=== PATIENT | female | born 1965 | race Caucasian/White ===

== ENCOUNTER 2017-11-27 21:23 | Emergency (ER) | payer BC ==
[2017-11-27] MEDS ORDERED: EPINEPHrine 1 MG/ML SDV IM ONE (21:29)
[2017-11-27] MEDS ORDERED: diphenhydrAMINE 50 MG/ML SDV IM ONE (21:29)
[2017-11-27] MEDS ORDERED: methylPREDNISolone Sodium Succinate 125 MG/2 ML SDV IM ONE (21:30)
--- NOTE | 2017-11-27 21:34 | EDM.PDOC ---
ED HPI GENERAL MEDICAL PROBLEM - General Stated Complaint: REACTION Time Seen by Provider: 11/27/17 21:32 Source of Information: Reports: Patient, Family, RN Notes Reviewed History Limitations: Reports: No Limitations - History of Present Illness INITIAL COMMENTS - FREE TEXT/NARRATIVE: 51-year-old female presents to emergency department today complaint of allergic reaction mainly lip swelling and redness she states she's tolerating breathing okay and no throat closure she does admit to pain in her left leg which she's not sure about, she did have flu shot today at 2:00 had a burger and fries for dinner with 2 beers all of which she's had before in the past - Related Data Allergies Allergy/AdvReac Type Severity Reaction Status Date / Time triamcinolone [From Kenalog] Allergy Other Verified 11/27/17 21:34 Home Meds: Home Meds Multivitamin with Minerals [Multiple Vitamin] 1 tab PO DAILY 06/05/17 [History] Omeprazole Magnesium [Prilosec Otc] 20 mg PO DAILY 06/05/17 [History] SUMAtriptan [Imitrex] 25 mg PO ASDIRECTED PRN 06/05/17 [History] Social & Family History - Tobacco Use Smoking Status *Q: Current Every Day Smoker ED ROS GENERAL - Review of Systems Review Of Systems: See Below Constitutional: Reports: No Symptoms Respiratory: Reports: No Symptoms Cardiovascular: Reports: No Symptoms Skin: Reports: Pruritis, Rash, Erythema ED EXAM, GENERAL - Physical Exam Exam: See Below Exam Limited By: No Limitations General Appearance: Alert, Mild Distress Respiratory/Chest: No Respiratory Distress, Lungs Clear, Normal Breath Sounds, No Accessory Muscle Use Cardiovascular: Regular Rate, Rhythm, No Murmur Skin Exam: Warm, Erythema, Rash Course - Vital Signs Last Recorded V/S: Last Vital Signs Temp 96.3 F 11/27/17 21:40 Pulse 109 H 11/27/17 22:19 Resp 15 11/27/17 22:19 BP 116/79 11/27/17 22:19 Pulse Ox 100 11/27/17 22:19 - Orders/Labs/Meds Meds: Medications Discontinued Medications Generic Name Dose Route Start Last Admin Trade Name Freq PRN Reason Stop Dose Admin Diphenhydramine HCl 25 mg 11/27/17 21:29 11/27/17 21:36 Benadryl IM 11/27/17 21:30 25 mg ONETIME ONE Administration Epinephrine HCl 0.3 mg 11/27/17 21:29 11/27/17 21:36 Adrenalin IM 11/27/17 21:30 0.3 mg ONETIME ONE Administration Methylprednisolone Sodium Succinate 125 mg 11/27/17 21:30 11/27/17 21:36 Solu-Medrol IM 11/27/17 21:31 125 mg ONETIME ONE Administration Departure - Departure Time of Disposition: 23:17 Disposition: Home, Self-Care 01 Condition: Good Clinical Impression: Allergic reaction Qualifiers: Encounter type: initial encounter Qualified Code(s): T78.40XA - Allergy, unspecified, initial encounter - Discharge Information Referrals: PCP,None [Primary Care Provider] - Additional Instructions: Fill your prescription for your injectable epinephrine, use this if needed Please followup with your primary care provider in 3-5 days if not better, please call return to the emergency department with worsening of symptoms. - Assessment/Plan Plan: Assessment Acuity = acute Site and laterality = allergic reaction Etiology = probably to a venomous bite unknown etiology Manifestations = none Location of injury = Home Lab values = none Plan Good improvement with epinephrine, Benadryl and Solu-Medrol, prescription for injectable epinephrine provided follow-up with primary care in 3-5 days if not better This note was dictated using [employer] voice recognition software please call with any questions on syntax or grammar.
== END 2017-11-27 23:23 | disposition home or self-care (01) ==
LOC: JP.ED 21:23
DX: R22.0 Localized swelling, mass and lump, head (principal); T78.40XA Allergy, unspecified, initial encounter; F17.210 Nicotine dependence, cigarettes, uncomplicated; Z88.8 Allergy status to other drugs, medicaments and biological substances; Z79.899 Other long term (current) drug therapy
CPT/HCPCS: 96372; 99283; J0171; J1200; J2930

== ENCOUNTER 2018-05-23 08:34 | Day surgery (SDC) | payer OTHER, BC ==
[~2018-05-23 08:34] MED LIST: Midazolam 1 MG/ML 2 ML SDV ONE; Propofol 200 MG/20 ML SDV ONE; fentaNYL 100 MCG/2 ML SDV ONE
[2018-05-23] MEDS ORDERED: Bupivacaine 0.5% 50 ML MDV ONE (08:48)
[2018-05-23] MEDS ORDERED: Acetaminophen 500 MG Tab PO ONE (09:30)
[2018-05-23] MEDS ORDERED: Nozin Nasal Sanitizer NASBOTH ONE (09:30)
[2018-05-23] MEDS: ceFAZolin 1 GM in Premix Bag 1 BAG IV ONE ×2 (09:35→12:57)
[2018-05-23] MEDS ORDERED: fentaNYL 100 MCG/2 ML SDV ONE ×2 (10:03→10:41)
[2018-05-23] MEDS ORDERED: Ketorolac 60 MG/2 ML SDV ONE (10:05)
[2018-05-23] MEDS ORDERED: Propofol 200 MG/20 ML SDV ONE ×4 (10:24→11:30)
[2018-05-23] MEDS ORDERED: Lactated Ringers 1,000 ML IV SCH (10:30)
[2018-05-23] MEDS ORDERED: Lactated Ringers 1,000 ML ONE (12:12)
[2018-05-23] MEDS ORDERED: Acetaminophen/oxyCODONE 325-5 MG Tab PO ONE (12:28)
--- NOTE | 2018-05-23 13:59 | PCM.OPNOTE ---
- General Post-Op/Procedure Note Date of Surgery/Procedure: 05/23/18 Operative Procedure(s): arthroscopy right shoulder with subacromial decompressand rotator cuff repair Findings: Severe impingement right shoulder,full-thickness rotator cuff tear with minimal retraction,Mandeep complex Pre Op Diagnosis: impingement right shoulder,rotator cuff tear Post-Op Diagnosis: Impingement right shoulder, full-thickness rotator cuff tear Anesthesia Technique: Moderate Sedation, Regional Block Primary Surgeon: Chau Griffiths Complications: None Condition: Good Free Text/Narrative:: Intake & Output 05/22/18 05/23/18 05/23/18 22:59 06:59 14:59 Intake Total 1500 Balance 1500 indications: Liya is a 52-year-old female with a history of injury to her right shoulder and full-thickness rotator cuff tear documented on MRI last year. She has been trying to manage without surgery pain is getting progressively worse. Now presents for arthroscopy of the right shoulder with decompression and rotator cuff repair, possible open rotator cuff repair. procedure: After adequate anesthesia was obtained placed was placed in the lateral decubitus position and secured with the beanbag. The right shoulder and arm were prepped and draped in a sterile fashion.10 pounds of traction was placed and the shoulder traction unit. Standard posterior portal was established. Lateral humeral joint was inspected. This revealed intact articular cart [place] complex variant was present subscapularis tendon was intact with some very mild fraying anterior superior edge. Biceps tendon was intact. Full-thickness tear of the supraspinatus was noted with significant fraying. An anterior portal was established and the undersurface of the tear was debrided. Biceps tendon was further inspected and pulled into the joint short distance to confirm that it was intact. Scope was then withdrawn and placed into the subacromial space. significant fraying on the undersurface of the coracoacromial ligament was present as well as the bursal surface of the torn rotator cuff.Moderate amount of bursitis was present. Using a combination of an ablation wand and shaver bursa was cleared and the coracoacromial ligament was removed from the undersurface of the acromion.Moderate acromial hook was present. Bur was then used to perform an acromioplasty removing the undersurface of the acromion. The edge of the rotator cuff tear was lightly debrided. Footprint on the tibial tuberosity was cleared of soft tissue and debrided with a bur down to bleeding bone. A separate accessory portal was established for a good angle for placement of suture anchors. 2 Mitek Closter anchors were then placed into the tuberosity excellent fixation. All 4 limbs of the sutures from the most posterior anchor were brought up through the tendon using the Mitek Express-Sew device. One set of sutures from the anterior anchor was brought up through the tendon.The size of the tear was such that it could not accommodate another set of sutures. The unused suture from the anterior anchor was removed. Working from anterior to posterior sutures were then tied down using standard arthroscopic technique. Soft tissue was then cleared from the lateral aspect of the tuberosity. An awl was used to make a tunnel for a lateral row anchor. Sutures from the anterior anchor and one set of sutures from the posterior anchor were then delivered through the lateral row anchor and tensioned. [place] was then secured into the tunnel with good compression. Sutures were then cut. The remaining sutures from the posterior medial row were then used for a second lateral row more posteriorly. Good approximation of the tendon to the tuberosity was obtained.Repair was inspected and the level of the acromioplasty evaluated. Solid repair was present and adequate decompression was noted.scope was withdrawn port sites were closed with 2-0 Vicryl and 3-0 Monocryl Steri-Strips were applied. Sterile dressing was then placed. Patient tolerated the procedure very well there were no complications she was taken from the operating room in stable condition
== END 2018-05-23 15:40 | disposition home or self-care (01) ==
LOC: JP.SDS 08:34
PROVIDERS: ATTEND Specialist
DX: M75.121 Complete rotator cuff tear or rupture of right shoulder, not specified as traumatic (principal); M25.811 Other specified joint disorders, right shoulder; K21.9 Gastro-esophageal reflux disease without esophagitis; Z79.899 Other long term (current) drug therapy; Z91.030 Bee allergy status
CPT/HCPCS: 29826; 29827; A9270; C1713; J0690; J1885; J2250; J2704; J3010; J7120; J3490